=== PATIENT | female | born 1985 | race Caucasian/White ===

== ENCOUNTER 2017-04-15 13:23 | Inpatient (IN) | payer OTHER ==
[2017-04-15 16:01] VITALS: BMI 31.5
--- NOTE | 2017-04-15 18:53 | HP ---
CIWA Score - CIWA Score Nausea/Vomitin-Mild Nausea/No Vomiting Muscle Tremors: 4-Moderate,w/Arms Extend Anxiety: 4-Mod. Anxious/Guarded Agitation: 4-Moderately Restless Paroxysmal Sweats: 1-Minimal Palms Moist Orientation: 0-Oriented Tacttile Disturbances: 0-None Auditory Disturbances: 0-None Visual Disturbances: 0-None Headache: 1-Very Mild CIWA-Ar Total Score: 15 Admission ROS BHS - HPI Chief Complaint: WITHDRAWAL SX Allergies/Adverse Reactions: Allergies Allergy/AdvReac Type Severity Reaction Status Date / Time No Known Allergies Allergy Verified 04/15/17 17:02 History of Present Illness: 32 YEARS OLD FEMALE WITH LONG HISTORY OF ALCOHOL COCAINE NICOTINE DEPENDENCE HAS BIPOLAR II CHRONIC GASTRITIS GERD IS ADMITTED TO DETOX Exam Limitations: No Limitations - Ebola screening Have you traveled outside of the country in the last 21 days: No (N) Have you had contact with anyone from an Ebola affected area: No Have you been sick,other than usual withdrawal symptoms: No Do you have a fever: No - Review of Systems Constitutional: Changes in sleep, Weight Stable EENT: reports: Blurred Vision (EYE GLASSES) Respiratory: reports: SOB with Exertion Cardiac: reports: No Symptoms Reported GI: reports: Nausea, Poor Fluid Intake, Indigestion, Abdominal cramping : reports: No Symptoms Reported Musculoskeletal: reports: Back Pain (CHRONIC X 10 YEARS) Integumentary: reports: Change in Color (ARMS + LEGS = ITCHING) Neuro: reports: Tremors Endocrine: reports: No Symptoms Reported Hematology: reports: No Symptoms Reported Psychiatric: reports: Judgement Intact, Orientated x3, Anxious, Depressed Other Systems: Reviewed and Negative Patient History - Patient Medical History Hx Anemia: No Hx Asthma: No Hx Chronic Obstructive Pulmonary Disease (COPD): No Hx Cancer: No Hx Cardiac Disorders: No Hx Congestive Heart Failure: No Hx Hypertension: No Hx Hypercholesterolemia: No Hx Pacemaker: No HX Cerebrovascular Accident: No Hx Seizures: No Hx Dementia: No Hx Diabetes: No Hx Gastrointestinal Disorders: Yes Hx Liver Disease: No Hx Genitourinary Disorders: No Hx Sexually Transmitted Disorders: Yes (Hx of HPV.) Hx Renal Disease (ESRD): No Hx Thyroid Disease: No Hx Human Immunodeficiency Virus (HIV): Yes (2014) Hx Hepatitis C: No Hx Depression: No Hx Suicide Attempt: Yes (Tried to overdose at age 16 yrs old.) Hx Bipolar Disorder: Yes Hx Schizophrenia: No - Patient Surgical History Past Surgical History: Yes Hx Neurologic Surgery: No Hx Cataract Extraction: No Hx Cardiac Surgery: No Hx Lung Surgery: No Hx Breast Surgery: No Hx Breast Biopsy: No Hx Abdominal Surgery: No Hx Appendectomy: No Hx Cholecystectomy: No Hx Genitourinary Surgery: No Hx Section: Yes (2006) Hx Orthopedic Surgery: Yes (RIGHT UPPER TOOTH REMOVED) Hx Hysterectomy: No Anesthesia Reaction: No - PPD History Previous Implant?: Yes Documented Results: Negative w/o proof Implanted On Prior [facility] Admission?: No PPD to be Administered?: Yes - Reproductive History Patient is a Female of Child Bearing Age (11 -55 yrs old): Yes Last Menstrual Period: 03/29/17 Patient : No - Smoking Cessation Smoking history: Current every day smoker Have you smoked in the past 12 months: Yes Aproximately how many cigarettes per day: 10 Cigars Per Day: 0 Hx Chewing Tobacco Use: No Initiated information on smoking cessation: Yes 'Breaking Loose' booklet given: 04/15/17 - Substance & Tx. History Hx Alcohol Use: Yes Hx Substance Use: Yes Substance Use Type: Alcohol, Cocaine Hx Substance Use Treatment: No (2012) - Substances Abused Alcohol Route: Oral Frequency: Daily Amount used: 4-5 beersX 24OZ Age of first use: 14 Date of Last Use: 04/15/17 Crack Route: Smoking Frequency: Daily Amount used: $300 and up Age of first use: 28 Date of Last Use: 04/13/17 Family Disease History - Family Disease History Family Disease History: Diabetes: Father, Mother, Heart Disease: Father, Other: Brother (NO CONTACT) Admission Physical Exam [facility] - Vital Signs Vital Signs: Vital Signs - 24 hr 04/15/17 15:58 Temperature 96.4 F L Pulse Rate 96 H Respiratory 20 Rate Blood Pressure 100/60 - Physical General Appearance: Yes: Appropriately Dressed, Mild Distress, Obese, Tremorous , Irritable, Sweating, Anxious HEENTM: Yes: Hearing grossly Normal, Normal ENT Inspection, Normocephalic, Normal Voice Respiratory: Yes: Chest Non-Tender, Lungs Clear, Normal Breath Sounds, No Respiratory Distress, No Accessory Muscle Use Neck: Yes: Supple, Trachea in good position Breast: Yes: Breasts Symetrical Cardiology: Yes: Regular Rhythm, S1, S2, Tachycardia Abdominal: Yes: Normal Bowel Sounds, Flat, Soft Genitourinary: Yes: Within Normal Limits Back: Yes: Normal Inspection Musculoskeletal: Yes: full range of Motion, Gait Steady Extremities: Yes: Normal Inspection, Normal Range of Motion, Non-Tender, Tremors Neurological: Yes: Alert, Motor Strength 5/5, Normal Response, Depressed Affect Integumentary: Yes: Warm Lymphatic: Yes: Within Normal Limits - Diagnostic (1) Alcohol dependence with uncomplicated withdrawal Current Visit: Yes Status: Acute (2) HIV (human immunodeficiency virus infection) Current Visit: Yes Status: Chronic Comment: NONE COMPLIANCE (3) Chronic gastritis Current Visit: Yes Status: Chronic Qualifiers: Gastritis type: alcoholic (4) GERD (gastroesophageal reflux disease) Current Visit: Yes Status: Chronic Qualifiers: Esophagitis presence: without esophagitis Qualified Code(s): K21.9 - Gastro -esophageal reflux disease without esophagitis (5) Bipolar II disorder Current Visit: Yes Status: Suspected Cleared for Admission [facility] - Detox or Rehab [facility] Level of Care: Medically Managed Detox Regimen/Protocol: Librium [facility] Breath Alcohol Content Breath Alcohol Content: 0 Urine Pregancy Test - Result Urine Test Results: Negative- NO Line Present Urine Drug Screen - Results Drug Screen Negative: No Urine Drug Screen Results: GRISELDA-Cocaine
[2017-04-15] MEDS ORDERED: P-EPHED 60MG/TRIPROLIDI 2.5MG TABLET PO PRN (19:06)
[2017-04-15] MEDS ORDERED: guaiFENesin/D-METHORPHAN HB 10 ML UNIT-DOSE CUPS PO PRN (19:06)
[2017-04-15] MEDS ORDERED: LOPERAMIDE HCL 2 MG CAPSULE PO PRN (19:06)
[2017-04-15] MEDS ORDERED: MAGNESIUM CITRATE 300 ML BOTTLE PO PRN (19:06)
[2017-04-15] MEDS ORDERED: NICOTINE 21 MG/24 HOURS TOPICAL PATCH TD PRN (19:06)
[2017-04-15] MEDS ORDERED: ACETAMINOPHEN 325 MG TABLET (FP) PO PRN (19:06)
[2017-04-15] MEDS ORDERED: NICOTINE POLACRILEX 4 MG GUM BC PRN (19:06)
[2017-04-15] MEDS ORDERED: chlordiazePOXIDE HCL 25 MG CAPSULE PO PRN (19:06)
[2017-04-15] MEDS ORDERED: MAG HYDROX/AL HYDROX/SIMETH 30 ML UNIT-DOSE CUP PO PRN (19:06)
[2017-04-15] MEDS ORDERED: MAGNESIUM HYDROX 2400MG/30ML ORAL SUSPENSION 30 ML CUP PO PRN (19:06)
[2017-04-15] MEDS ORDERED: MENTHOL/PHENOL 1 EACH UD MM PRN (19:06)
[2017-04-15] MEDS ORDERED: NAPROXEN 500 MG TABLET (FP) PO PRN (19:08)
[2017-04-15] MEDS: RANITIDINE HCL 150 MG TABLET (FP) PO SCH ×2 (20:02→22:33)
[2017-04-15] MEDS: chlordiazePOXIDE HCL 25 MG CAPSULE PO SCH (22:33)
[2017-04-15] MEDS: THIAMINE HCL 100 MG TABLET (FP) PO SCH (22:33)
[2017-04-15 23:14] LABS: URINE APPEARANCE SLCLOUDY; URINE BILIRUBIN NEGATIVE (NEGATIVE); URINE BLOOD NEGATIVE (NEGATIVE); URINE COLOR YELLOW; URINE GLUCOSE (UA) NEGATIVE (NEGATIVE); URINE KETONE TRACE (NEGATIVE); URINE NITRITE NEGATIVE (NEGATIVE); URINE PROTEIN NEGATIVE (NEGATIVE); URINE UROBILINOGEN NEGATIVE mg/dL (0.2-1.0)
[2017-04-16] MEDS: chlordiazePOXIDE HCL 25 MG CAPSULE PO SCH ×4 (07:46→22:20)
[2017-04-16] MEDS ORDERED: PRENATAL VITAMINS W/ FOLIC ACID TABLET (FP) PO SCH (10:00)
[2017-04-16 10:02] LABS: URINE LEUK ESTERASE Negative (NEGATIVE)
[2017-04-16 10:08] LABS: MCH 29.1 pg (25.7-33.7); MCHC 32.7 g/dl (32.0-36.0); MEAN CELL VOLUME 88.9 fl (80-96); MEAN PLT VOLUME 7.8 fl (7.5-11.1); PLATELET COUNT 233 K/MM3 (134-434); RDW 15.5 % (11.6-15.6); WHITE BLOOD COUNT 4.7 K/mm3 (4.0-10.0)
[2017-04-16 10:32] LABS: ALBUMIN 3.1 g/dl (3.4-5.0); ALK PHOS 54 U/L (45-117); ANION GAP 8 (8-16); BILIRUBIN,TOTAL 0.2 mg/dL (0.2-1.0); CALCIUM 8.7 mg/dL (8.5-10.1); CO2 25 mmol/L (21-32); CREATININE 0.8 mg/dL (0.55-1.02); GLUCOSE,RANDOM 86 mg/dL (74-106); SGOT/AST 8 U/L (15-37); SGPT/ALT 10 U/L (12-78); TOT PROT 6.7 g/dl (6.4-8.2)
[2017-04-16] MEDS: RANITIDINE HCL 150 MG TABLET (FP) PO SCH ×2 (10:47→22:20)
[2017-04-16] MEDS ORDERED: IBUPROFEN 400 MG TABLET (FP) PO PRN (12:16)
--- NOTE | 2017-04-16 12:21 | PN ---
[facility] CIWA - CIWA Score Nausea/Vomitin-No Nausea/No Vomiting Muscle Tremors: 4-Moderate,w/Arms Extend Anxiety: 4-Mod. Anxious/Guarded Agitation: 4-Moderately Restless Paroxysmal Sweats: 3 Orientation: 0-Oriented Tacttile Disturbances: 0-None Auditory Disturbances: 0-None Visual Disturbances: 0-None Headache: 0-None Present CIWA-Ar Total Score: 15 BHS Progress Note (SOAP) Subjective: sweats shakes restless agitation anxiety interrupted sleep cramps there is blood in my urine Objective: 04/16/17 12:19 Vital Signs Temperature 97.5 F L 04/16/17 09:37 Pulse Rate 112 H 04/16/17 09:37 Respiratory Rate 18 04/16/17 09:37 Blood Pressure 96/61 04/16/17 09:37 O2 Sat by Pulse Oximetry (%) Laboratory Tests 04/15/17 04/16/17 04/16/17 23:00 07:00 07:00 WBC 4.7 RBC 4.41 Hgb 12.8 Hct 39.2 MCV 88.9 MCH 29.1 MCHC 32.7 RDW 15.5 Plt Count 233 MPV 7.8 Sodium 143 Potassium 4.5 Chloride 110 H Carbon Dioxide 25 Anion Gap 8 BUN 14 Creatinine 0.8 Creat Clearance w eGFR > 60 Random Glucose 86 Calcium 8.7 Total Bilirubin 0.2 AST 8 L ALT 10 L Alkaline Phosphatase 54 Total Protein 6.7 Albumin 3.1 L Urine Color Yellow Urine Appearance Slcloudy Urine pH 6.0 Ur Specific [place] 1.018 Urine Protein Negative Urine Glucose (UA) Negative Urine Ketones Trace H Urine Blood Negative Urine Nitrite Negative Urine Bilirubin Negative Urine Urobilinogen Negative Ur Leukocyte Esterase Negative Valproic Acid RPR Titer 04/16/17 04/16/17 07:00 07:00 WBC RBC Hgb Hct MCV MCH MCHC RDW Plt Count MPV Sodium Potassium Chloride Carbon Dioxide Anion Gap BUN Creatinine Creat Clearance w eGFR Random Glucose Calcium Total Bilirubin AST ALT Alkaline Phosphatase Total Protein Albumin Urine Color Urine Appearance Urine pH Ur Specific [place] Urine Protein Urine Glucose (UA) Urine Ketones Urine Blood Urine Nitrite Urine Bilirubin Urine Urobilinogen Ur Leukocyte Esterase Valproic Acid 16.687 L RPR Titer Nonreactive repeat u/s with C&S possible menstruation when she voided. pt was given a pad and there is evidence of blood again possible menstruation. aaox3 ambulating no acute distress Assessment: 04/16/17 12:20 withdrawal sx Plan: continue detox increase fluids warm hot pack to abdominal area motrin prn f/u urine results
--- NOTE | 2017-04-16 15:56 | CONSULT ---
[facility] Psychiatric Consult - Data Date of interview: 04/16/17 Admission source: [facility] Identifying data: Pt. is a 32 year old female, single mother of two daughters, who is unemployed and is on SSI. This is patient's first admission to [facility] detox. Pt. admitted to detox for crack/cocaine and alcohol dependence. Substance Abuse History: Crack/Cocaine- First used: 28 years of age. Usage: $400 -$500 per month. Last used 04/12/2017. Alcohol- First drank alcohol at age 14 years of age. Reports drinking approximately 4 beers every weekend. Cigarette- Everyday since 14 years of age. Approximately one pack per day. Marijuana- Stated she has not smoked marjuana recently but does report a history of marijuana use. Medical History: HPV, HIV since 2014. Psychiatric History: Pt. reports a history of bipolar disorder. Pt with a h/o one psychiatric hospitalization but is unable to recall the year and hospital in which she was admitted. Pt reports one suicide attempt at the age of 16 in which she overdosed on control pills. Pt currently denies Suicidal and homicidal ideation. Pt. reports taking depakote,risperdal, cogentin and invega sustena. Stated she last took risperdal on 04/15/2017. Stated she had the invega sustena injection given to her on 04/10/17. Pt. stated she was followed by the ACT in [place] but her case was transferred over to an ACT team in the [place]. Pt. stated Dr. Greene was her psychiatrist but he no longer works for the ACT Team. Pt reports not having a pharmacy that fills her prescription. Physical/Sexual Abuse/Trauma History: Denies history of physical and sexual abuse. Mental Status Exam - Mental Status Exam Alert and Oriented to: Time, Place, Person Cognitive Function: Fair Patient Appearance: Well Groomed Mood: Anxious, Irritable (slightly irritable. More anxious then irritable. ) Affect: Mood Congruent Patient Behavior: Cooperative Speech Pattern: Clear, Appropriate Voice Loudness: Normal Thought Process: Goal Oriented Thought Disorder: Present Hallucinations: Denies Suicidal Ideation: Denies Homicidal Ideation: Denies Insight/Judgement: Fair Sleep: Fair Appetite: Fair Muscle strength/Tone: Normal Gait/Station: Normal Psychiatric Findings - Problem List ([place] 1, 2,3) (1) Alcohol dependence with uncomplicated withdrawal Current Visit: Yes Status: Acute (2) Crack cocaine use Current Visit: Yes Status: Acute (3) Substance induced mood disorder Current Visit: Yes Status: Acute (4) Nicotine dependence Current Visit: Yes Status: Acute (5) Bipolar disorder Current Visit: Yes Status: Acute Comment: As per self report, patient reports a diagnoses of bipolar disorder and is followed by the ACT team. - Initial Treatment Plan Initial Treatment Plan: Psychoeducation provided. Chart and labs reviewed. Depakote level- 16.687. Liver enzymes within normal limits. Will resume depakote medication- 250mg BID with plan to titrate upwards to 500mg BID.Vistaril 25mg q6hr ordered for anxiety/restlessness. Benefits and side effects discussed with patient. Verbal consent givent. Pt. agreeable with plan.
[2017-04-16] MEDS ORDERED: hydrOXYzine PAMOATE 25 MG CAPSULE (FP) PO PRN (18:10)
[2017-04-16] MEDS ORDERED: hydrOXYzine PAMOATE 25 MG CAPSULE (FP) PO ONE (18:30)
[2017-04-16] MEDS ORDERED: DIVALPROEX SODIUM 250 MG TABLET E.C. (FP) PO SCH (22:00)
[2017-04-16] MEDS: THIAMINE HCL 100 MG TABLET (FP) PO SCH (22:20)
[2017-04-17] MEDS: chlordiazePOXIDE HCL 25 MG CAPSULE PO SCH (06:12)
--- NOTE | 2017-04-17 08:00 | EKG ---
Test Reason : Blood Pressure : / mmHG Vent. Rate : 063 BPM Atrial Rate : 063 BPM P-R Int : 120 ms QRS Dur : 084 ms QT Int : 430 ms P-R-T Axes : 033 075 052 degrees QTc Int : 440 ms NORMAL SINUS RHYTHM NONSPECIFIC ST ABNORMALITY ABNORMAL ECG NO PREVIOUS ECGS AVAILABLE Confirmed by MD Amezcua Daniel ([id number]) on 04/16/2017 3:04:00 PM Also confirmed by MD Amezcua Daniel ([id number]), marketing editor MARLA MILAN ([id number]) on 04/17/2017 8:00:12 AM Referred By: Maribel Meeks Confirmed By:Marla Amezcua MD
--- NOTE | 2017-04-17 09:46 | PN ---
S Progress Note Note: Pt states she doesn't want to stay wants to go home and go to her PMD she feels ok and doesn't want to take the libirum anymore.
--- NOTE | 2017-04-17 09:48 | DS ---
[facility] Detox Discharge Summary Admission Date: 04/15/17 - History Present History: Alcohol Dependence, Cocaine Dependence - Physical Exam Results Vital Signs: Vital Signs Temperature 98.3 F 04/17/17 06:15 Pulse Rate 57 L 04/17/17 06:15 Respiratory Rate 16 04/17/17 06:15 Blood Pressure 91/50 04/17/17 06:15 O2 Sat by Pulse Oximetry (%) - Treatment Hospital Course: Discharged Condition Good - Medication Discharge Medications: Ambulatory Orders Benztropine Mesylate [Cogentin -] 1 mg PO BID 04/15/17 Divalproex [Depakote -] 500 mg PO TID 04/15/17 Paliperidone Palmitate [Invega Sustenna] 234 mg IM MONTHLY 04/15/17 - Diagnosis (1) Alcohol dependence with uncomplicated withdrawal Current Visit: Yes Status: Chronic (2) Bipolar disorder Current Visit: Yes Status: Acute (3) Crack cocaine use Current Visit: Yes Status: Chronic (4) Nicotine dependence Current Visit: Yes Status: Chronic Qualifiers: Nicotine product type: cigarettes Substance use status: uncomplicated Qualified Code(s): F17.210 - Nicotine dependence, cigarettes, uncomplicated (5) Substance induced mood disorder Current Visit: Yes Status: Acute (6) Chronic gastritis Current Visit: Yes Status: Chronic Qualifiers: Gastritis type: alcoholic (7) GERD (gastroesophageal reflux disease) Current Visit: Yes Status: Chronic Qualifiers: Esophagitis presence: without esophagitis Qualified Code(s): K21.9 - Gastro -esophageal reflux disease without esophagitis (8) HIV (human immunodeficiency virus infection) Current Visit: Yes Status: Chronic (9) Bipolar II disorder Current Visit: Yes Status: Suspected - AMA Did Patient Leave Against Medical Advice: Yes (wants to go home)
[2017-04-17 10:07] VITALS: BP 106/63; PULSE 112; TEMP 97.7
[2017-04-17] MEDS ORDERED: chlordiazePOXIDE 5 MG CAPSULE PO SCH (23:00)
[2017-04-18] MEDS ORDERED: chlordiazePOXIDE HCL 10 MG CAPSULE PO SCH (23:00)
== END 2017-04-17 09:55 | disposition left against medical advice (07) | DRG 770 ==
LOC: YASAS 13:23 → Y6N 18:27
PROVIDERS: ADMIT Internal Medicine; ATTEND Internal Medicine
PROC: HZ2ZZZZ Detoxification Services for Substance Abuse Treatment (ICD-10-PCS; principal; 2017-04-15)
DX: F10.230 Alcohol dependence with withdrawal, uncomplicated (principal); F14.10 Cocaine abuse, uncomplicated; F17.210 Nicotine dependence, cigarettes, uncomplicated; F19.24 Other psychoactive substance dependence with psychoactive substance-induced mood disorder; F31.81 Bipolar II disorder; F31.9 Bipolar disorder, unspecified; K21.9 Gastro-esophageal reflux disease without esophagitis; K29.20 Alcoholic gastritis without bleeding; Z21 Asymptomatic human immunodeficiency virus [HIV] infection status; Z91.5 Personal history of self-harm; Z87.42 Personal history of other diseases of the female genital tract
CPT/HCPCS: 36415; 80053; 80164; 81003; 85027; 86593; 87086; 93005; 93010

== ENCOUNTER 2017-04-17 10:59 | Emergency (ER) | payer OTHER ==
[2017-04-17 11:31] VITALS: BMI 36.4
--- NOTE | 2017-04-17 12:01 | PDOC ---
History of Present Illness - General Chief Complaint: Headache Stated Complaint: ABD PAIN Time Seen by Provider: 04/17/17 11:48 History Source: Patient, Old Records Exam Limitations: Clinical Condition - History of Present Illness Initial Comments: 04/17/17 12:59 This 32 yr old female presents via EMS for multiple complaints. History is neg for pt being seen here prior. she is agitated and states she has many problems and wants them "fixed." She is mildly trembling and she tells us she was in Detox for 2 days but this morning they opened up her librium and poured it in a cup which gave her a stomach ache and is bleeding"down there" and she is concerned about her trembling and "veins are popping out" Pt is presenting with symptoms consistent with withdrawal. She states she had her last drink two days ago at 8 am She alos uses crack cocaine and last used 04/15 She is a + smoker of cigarettes. She does have a hx of bipolar and on no significant meds or care for this hx She is from the [place] and lives with friends although no one is presnet with her. I contacted [facility] in pt unit and find that the pt left this morning AMA then called 911 to come to ER with her multiple complaints She refused her Librium this AM Past History - Past Medical History Allergies/Adverse Reactions: Allergies Allergy/AdvReac Type Severity Reaction Status Date / Time No Known Allergies Allergy Verified 04/15/17 17:02 Home Medications: Ambulatory Orders Benztropine Mesylate [Cogentin -] 1 mg PO BID 04/15/17 Divalproex [Depakote -] 500 mg PO TID 04/15/17 Paliperidone Palmitate [Invega Sustenna] 234 mg IM MONTHLY 04/15/17 Anemia: No Asthma: No Cancer: No Cardiac Disorders: No CVA: No COPD: No CHF: No Dementia: No Diabetes: No GI Disorders: Yes Disorders: No HTN: No Hypercholesterolemia: No Kidney Stones: No Liver Disease: No Seizures: No Thyroid Disease: No - Surgical History Abdominal Surgery: No Appendectomy: No Cardiac Surgery: No Cholecystectomy: No Lung Surgery: No Neurologic Surgery: No Orthopedic Surgery: Yes (RIGHT UPPER TOOTH REMOVED) - Reproductive History PID: No - Suicide/Smoking/Psychosocial Hx Smoking History: Current every day smoker Have you smoked in the past 12 months: Yes Number of Cigarettes Smoked Daily: 6 Cigars Per Day: 0 Information on smoking cessation initiated: No 'Breaking Loose' booklet given: 04/15/17 Hx Alcohol Use: Yes Drug/Substance Use Hx: Yes Substance Use Type: Alcohol, Cocaine Hx Substance Use Treatment: No (2012) Review of Systems - Review of Systems Able to Perform ROS?: Yes Is the patient limited Finnish proficient: Yes Constitutional: No: Symptoms Reported HEENTM: No: Symptoms Reported Respiratory: No: Symptoms reported Cardiac (ROS): No: Symptoms Reported ABD/GI: Yes: See HPI, Indigestion, Other (abdominal pain all over). No: Abdominal Distended, Nausea, Vomiting, Abdominal cramping : Yes: Hematuria (so pt states but none witnessed). No: Burning, Dysuria Musculoskeletal: No: Symptoms Reported Integumentary: No: Symptoms Reported Neurological: No: Symptoms reported *Physical Exam - Vital Signs Last Vital Signs Temp Pulse Resp BP Pulse Ox 98.1 F 80 16 96/61 98 04/17/17 11:28 04/17/17 11:28 04/17/17 11:28 04/17/17 11:28 04/17/17 11:28 - Physical Exam HEENT: positive: Normal Voice Respiratory/Chest: positive: Lungs Clear Cardiovascular: positive: Regular Rate Gastrointestinal/Abdominal: positive: Normal Bowel Sounds, Flat, Soft. negative : Distended, Guarding, Rebound, Tenderness, Hepatomegaly, Spleenomegaly Extremity: positive: Normal Capillary Refill Integumentary: positive: Normal Color, Dry, Warm Neurologic: positive: Fully Oriented, Alert Medical Decision Making - Medical Decision Making 04/17/17 13:13 Pt seen and examined. Pt with c/o abdominal pain, blood urine, and detox not fixing all of her problems Plan: -labs -drug/etoh screen -librium dose where she left off 25 mg Q8 -banana bag -monitor While this admission was starting pt wanted to leave and go to her own doctors however she states on another occasion she does not have one. Pt opted to stay for now 04/17/17 15:01 Pt feeling much better after librium and IVF. she says she wants to return to detox in her home town. 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 *DC/Admit/Observation/Transfer Diagnosis at time of Disposition: Alcohol dependence with uncomplicated withdrawal - Discharge Dispostion Disposition: HOME Condition at time of disposition: Good Admit: No - Referrals - Patient Instructions Additional Instructions: Discharge Instructions 1. return to detox and rehab for completing your detox 2. avoid alcohol and drug use 3. follow up with your briefcase sewer 4. drink plenty of water. - Post Discharge Activity
[2017-04-17] MEDS ORDERED: ONDANSETRON 4 MG/2 ML VIAL IVPUSH ONE (12:04)
[2017-04-17] MEDS ORDERED: FOLIC ACID INJECTION - 1 MG, THIAMINE HCL 100 MG, MULTIVIT INJECTION ADULT 10 ML in SOD... IVPB ONE (12:04)
[2017-04-17] MEDS ORDERED: chlordiazePOXIDE HCL 25 MG CAPSULE PO ONE (12:04)
[2017-04-17] MEDS ORDERED: RANITIDINE HCL 150 MG TABLET (FP) PO ONE (12:19)
[2017-04-17] MEDS ORDERED: chlordiazePOXIDE HCL 25 MG CAPSULE ONE (12:23)
[2017-04-17] MEDS ORDERED: RANITIDINE HCL 150 MG TABLET (FP) ONE (12:24)
[2017-04-17] MEDS ORDERED: ONDANSETRON 4 MG/2 ML VIAL ONE (12:24)
[2017-04-17 12:56] LABS: URINE APPEARANCE CLEAR; URINE BILIRUBIN NEGATIVE (NEGATIVE); URINE BLOOD 3+ (NEGATIVE); URINE COLOR LTYELLOW; URINE GLUCOSE (UA) NEGATIVE (NEGATIVE); URINE KETONE NEGATIVE (NEGATIVE); URINE LEUK ESTERASE NEGATIVE (NEGATIVE); URINE NITRITE NEGATIVE (NEGATIVE); URINE PROTEIN NEGATIVE (NEGATIVE); URINE UROBILINOGEN NEGATIVE mg/dL (0.2-1.0)
[2017-04-17 13:02] LABS: URINE MUCUS RARE; URINE RBC 143 /hpf (0-3); URINE WBC 1 /hpf (3-5)
[2017-04-17 13:12] LABS: URINE MARIJUANA THC NEGATIVE ng/ml (CUTOFF=50)
[2017-04-17 15:19] VITALS: BP 104/57; PULSE 68; TEMP 97.8
[2017-04-17 18:29] LABS: URINE LEUK ESTERASE Negative (NEGATIVE)
== END 2017-04-17 15:17 | disposition home or self-care (01) ==
LOC: JER 10:59
PROC: 3E033GC Introduction of Other Therapeutic Substance into Peripheral Vein, Percutaneous Approach (ICD-10-PCS; principal; 2017-04-17)
PROC: 3E033GC Introduction of Other Therapeutic Substance into Peripheral Vein, Percutaneous Approach (ICD-10-PCS; 2017-04-17)
DX: F10.230 Alcohol dependence with withdrawal, uncomplicated (principal); F14.10 Cocaine abuse, uncomplicated; F17.210 Nicotine dependence, cigarettes, uncomplicated; F31.9 Bipolar disorder, unspecified
CPT/HCPCS: 36415; 80307; 81003; 81015; 84703; 99283-25